=== PATIENT | female | born 1995 | race Caucasian/White ===

== ENCOUNTER 2018-10-02 14:32 | Emergency (ER) | payer MEDICAID ==
[~2018-10-02] VITALS: Ht 157.5 cm; Wt 54.4 kg
[2018-10-02 14:39] VITALS: BP 120/70
== END 2018-10-02 15:03 | disposition home or self-care (01) ==
LOC: ER 14:38
DX: S60.943A Unspecified superficial injury of left middle finger, initial encounter (principal); W46.0XXA Contact with hypodermic needle, initial encounter; Y93.89 Activity, other specified; Y92.89 Other specified places as the place of occurrence of the external cause; Y99.8 Other external cause status
CPT/HCPCS: 36415; 86706; 86803; 87340; 87806